=== PATIENT | male | born 1990 | race Caucasian/White ===

== ENCOUNTER 2025-07-10 09:26 | Emergency (ER) | payer MEDICAID ==
[~2025-07-10] VITALS: Ht 172.7 cm; Wt 79.0 kg
[2025-07-10 09:45] VITALS: O2SAT 98
[2025-07-10] MEDS ORDERED: KETOROLAC 15MG/ML VIAL IM ONE (10:30)
[2025-07-10 10:38] LABS: CLARITY URINE CLOUDY (CLEAR); COLOR URINE YELLOW (YELLOW); GLUCOSE URINE NEGATIVE (NEGATIVE); KETONES URINE NEGATIVE (NEGATIVE); LEUKOCYTE ESTERASE URINE TRACE (NEGATIVE); NITRITE URINE NEGATIVE (NEGATIVE); OCCULT BLOOD URINE 3+ (NEGATIVE); PH URINE 7.5 (4.5-8.0); PROTEIN URINE TRACE (NEGATIVE); SPECIFIC GRAVITY URINE 1.020 (1.005-1.030); UROBILINOGEN URINE 1.0 E.U./dL (0.2-1.0)
[2025-07-10 10:48] LABS: BASOPHILS % 0.6 % (0.0-2.0); EOSINOPHILS % 4.6 % (0.0-5.0); HEMATOCRIT. 44.4 % (42.0-52.0); HEMOGLOBIN. 15.0 g/dL (14.0-18.0); LYMPHOCYTES % 23.7 % (20.0-50.0); MEAN PLATELET VOLUME 6.8 fl (7.4-10.4); MONOCYTES % 7.7 % (2.0-8.0); NEUTROPHILS % 63.4 % (40.0-76.0); PLATELET 344 x1000/uL (130-400); RED BLOOD CELL COUNT 4.70 mill/uL (4.7-6.1); RED CELL DISTRIBUTION WIDTH 13.2 % (11.6-14.6)
[2025-07-10 10:48] LABS: MUCUS URINE 1+ /lpf (NONE/TRACE); RBC URINE TNTC /hpf (0-2); SQUAMOUS EPITHELIAL CELL URINE FEW /lpf (RARE/1+)
[2025-07-10 10:49] LABS: BACTERIA URINE 1+
[2025-07-10 11:02] LABS: CREATININE 1.0 mg/dL (0.6-1.3); UREA NITROGEN BLOOD 11 mg/dL (9-23)
[2025-07-10 11:04] LABS: ASPARTATE AMINOTRANSFERASE 29 IU/L (<34); BILIRUBIN TOTAL 0.7 mg/dL (0.1-1.0); PROTEIN TOTAL 7.0 g/dL (6.0-8.3)
[2025-07-10] MEDS: SODIUM CHLORIDE 0.9% 1,000 ML IV ONE (12:45)
[2025-07-10] MEDS: KETOROLAC 15MG/ML VIAL IM NR (13:57)
[2025-07-10] MEDS ORDERED: IBUP-2029 MT (14:35)
[2025-07-10] MEDS ORDERED: TAMS-54 MT (14:35)
[2025-07-10 15:50] VITALS: BP 135/84; PULSE 59; RESP 16; TEMP 37; O2SAT 100
== END 2025-07-10 15:51 | disposition home or self-care (01) ==
LOC: ER 09:27
DX: N20.9 Urinary calculus, unspecified (principal); Z87.442 Personal history of urinary calculi
CPT/HCPCS: 99285; 74176; 96360; 76770; 80053; 81003; 83690; 85025; 36415; 96372; J1885; J7030